=== PATIENT | male | born 1940 | race Two or more races ===

== ENCOUNTER 2019-12-06 10:04 | Emergency (ER) | payer MEDICARE, OTHER ==
[~2019-12-06] VITALS: Ht 157.5 cm; Wt 77.1 kg
[2019-12-06 12:20] VITALS: BP 111/78
== END 2019-12-06 13:33 | disposition home or self-care (01) ==
LOC: ER 10:04
DX: S01.21XA Laceration without foreign body of nose, initial encounter (principal); S01.511A Laceration without foreign body of lip, initial encounter; W01.0XXA Fall on same level from slipping, tripping and stumbling without subsequent striking against object, initial encounter; Y93.89 Activity, other specified; Y92.89 Other specified places as the place of occurrence of the external cause; Y99.8 Other external cause status
CPT/HCPCS: 12011; 70450; 70486; 72125